=== PATIENT | female | born 1985 | race Caucasian/White ===

== ENCOUNTER 2017-05-18 21:20 | Emergency (ER) | payer BC ==
[2017-05-18 21:27] VITALS: BP 139/89; PULSE 115; RESP 18; TEMP 98.8
--- NOTE | 2017-05-18 21:39 | ED ---
Extremity Problem HPI - General Chief complaint: Extremity Problem,Nontraumatic Stated complaint: finger swelling Time Seen by Provider: 05/18/17 21:30 Source: patient, RN notes reviewed Mode of arrival: ambulatory Limitations: no limitations - History of Present Illness Initial comments: Patient is a 31-year-old female presents to the emergency room for evaluation of left fourth finger swelling. Patient states that she had her ring resized and "bumps" placed on the inside of the ring to make to bring smaller to fit her finger. Patient states that she noticed the ring felt a little tight but thought that was normal. Patient states she noticed that her finger began swelling and she was unable to get her ring off. Patient states that her finger is now very swollen and she can't get the ring off. Patient states she' s tried Vaseline and soap with no relief of symptoms. Patient denies any traumatic injury to her finger. - Related Data Home Medications Medication Instructions Recorded Confirmed Controll 1 tab PO DAILY 05/18/17 05/18/17 Pnv,Calcium 72/Iron/Folic Acid 1 tab PO DAILY 05/18/17 05/18/17 [ Plus Tablet] Allergies Allergy/AdvReac Type Severity Reaction Status Date / Time cefaclor [From Ceclor] AdvReac Rash/Hives Verified 05/18/17 21:27 Penicillins AdvReac Unknown Verified 05/18/17 21:27 Childhood Sulfa (Sulfonamide AdvReac Swelling Verified 05/18/17 21:27 Antibiotics) Review of Systems ROS Statement: Those systems with pertinent positive or pertinent negative responses have been documented in the HPI. ROS Other: All systems not noted in ROS Statement are negative. Past Medical History Past Medical History: No Reported History History of Any Multi-Drug Resistant Organisms: None Reported Past Surgical History: Cholecystectomy Past Psychological History: No Psychological Hx Reported, Anxiety, Depression Smoking Status: Never smoker Past Alcohol Use History: Daily Past Drug Use History: None Reported General Exam - General Exam Comments Initial Comments: Sitting in exam room, anxious Limitations: no limitations General appearance: alert Head exam: Present: atraumatic, normal inspection Eye exam: Present: normal appearance ENT exam: Present: normal exam Neck exam: Present: normal inspection Left Hand Wrist exam: Present: swelling (Edematous fourth digit, with ring placed.) Course Vital Signs 05/18/17 21:24 Temperature 98.8 F Pulse Rate 115 H Respiratory 18 Rate Blood Pressure 139/89 O2 Sat by Pulse 100 Oximetry Disposition Clinical Impression: Tight ring on finger Disposition: HOME SELF-CARE Condition: Good Additional Instructions: If any new symptom arises or symptoms worsen, return to ER as soon as possible. Referrals: Fernie Weber MD [Primary Care Provider] - 1-2 days Time of Disposition: 22:09
[2017-05-18] MEDS ORDERED: LORazepam 1 MG TAB PO STA (22:12)
[2017-05-18] MEDS ORDERED: IBUPROFEN 600 MG TAB PO STA (22:12)
== END 2017-05-18 22:23 | disposition home or self-care (01) ==
LOC: EC 21:20
DX: M79.89 Other specified soft tissue disorders (principal); Z79.3 Long term (current) use of hormonal contraceptives; Z79.899 Other long term (current) drug therapy; Z88.0 Allergy status to penicillin; Z88.1 Allergy status to other antibiotic agents; Z88.2 Allergy status to sulfonamides
CPT/HCPCS: 99283